=== PATIENT | female | born 1980 | race Two or more races ===

== ENCOUNTER 2016-06-30 20:49 | Emergency (ER) | payer SELFPAY ==
[~2016-06-30] VITALS: Ht 157.5 cm; Wt 51.7 kg
[2016-06-30 21:10] VITALS: BP 124/60
--- NOTE | 2016-06-30 21:17 | Emergency Room Report ---
History of Present Illness General Chief Complaint: Toothache Source: Patient Present Illness HPI Patient presents with several days of back tooth pain. She was seen by a dentist last week. They cancelled taking care of her because of insurance. She 's got foul discharge from that tooth on the left-hand side. In addition to that her lymph nodes are somewhat swollen and she has a little bit of pain and swelling. She denies any fevers, nausea, vomiting, diarrhea, chest pain, shortness of breath, rashes. She is on her period now. Pain 5/10, constant, somewhat radiating to neck. No swelling. Allergies: Coded Allergies: No Known Allergies (Unverified , 06/30/16) Patient History Past Medical History: see triage record Social History Narrative with children Last Menstrual Period: On her period Now: No Reviewed Nursing Documentation: PMH: Agreed, PSxH: Agreed Nursing Documentation-PMH Past Medical History: No Stated History Review of Systems All Other Systems: negative except mentioned in HPI Physical Exam Vital Signs Date Time Temp Pulse Resp B/P Pulse Ox O2 Delivery O2 Flow Rate FiO2 06/30/16 21:01 97.9 59 16 124/60 100 Room Air Sp02 EP Interpretation: reviewed, normal General Appearance: well appearing, no apparent distress, GCS 15 Head: normocephalic, atraumatic Eyes: bilateral eye PERRL, bilateral eye normal inspection ENT: normal pharynx, normal voice, moist mucus membranes, other - Bilateral lower wisdom teeth partially poking through the gums. There is no increased swelling. Neck: full range of motion, supple Respiratory: no respiratory distress, speaking full sentences Cardiovascular #2: 2+ radial (L) Gastrointestinal: normal inspection Musculoskeletal: gait/station normal Neurologic: alert, normal gait, grossly normal Psychiatric: mood/affect normal Skin: no rash Medical Decision Making Diagnostic Impression: Primary Impression: Toothache Additional Impression: Infected wisdom tooth ER Course The patient presents with wisdom teeth that are partially through the gum. The left side is infected and expressing pus. Antibiotics and analgesics are indicated. The patient will need to go to a dentist to have wisdom teeth removed. Not toxic and swallowing without difficulty. The patient is stable for outpatient observation and treatment. Last Vital Signs Date Time Temp Pulse Resp B/P Pulse Ox O2 Delivery O2 Flow Rate FiO2 06/30/16 22:13 97.9 59 16 124/60 100 Room Air Status: improved Disposition: HOME, SELF-CARE Condition: Improved Scripts Ibuprofen* (MOTRIN*) 600 Mg Tablet 600 MG ORAL Q6H Y for For Pain, #20 TAB Prov: Jorge Riley M.D. 06/30/16 Amoxicillin* (AMOXIL*) 500 Mg Capsule 500 MG ORAL THREE TIMES A DAY, #21 CAP Prov: Jorge Riley M.D. 06/30/16 Jorge Riley M.D. Jun 30, 2016 21:17
[2016-06-30] MEDS ORDERED: AMOXICILLIN500 MG ORAL (21:24)
[2016-06-30] MEDS ORDERED: IBUPROFEN600 MG ORAL (21:24)
[2016-06-30 22:13] VITALS: BP 124/60
== END 2016-06-30 22:13 | disposition home or self-care (01) ==
LOC: EMR 21:34
DX: K08.89 Other specified disorders of teeth and supporting structures (principal); K04.7 Periapical abscess without sinus
CPT/HCPCS: 99284